=== PATIENT | female | born 1965 | race Caucasian/White ===

== ENCOUNTER 2017-05-16 09:30 | Day surgery (SDC) | payer BC ==
[2017-05-16] MEDS ORDERED: LIDOCAINE 2% MDV (20MG/ML) 20ML VIAL IV ONE (14:00)
[2017-05-16] MEDS ORDERED: PROPOFOL 10 MG/ML VIAL IV ONE (14:00)
[2017-05-16] MEDS ORDERED: MIDAZOLAM HCL 2MG/2ML VIAL IV ONE (14:00)
--- NOTE | 2017-05-20 10:00 | Operative Note ---
DATE OF SURGERY: 05/16/2017 OPERATION: Screening COLONOSCOPY. PREOPERATIVE DIAGNOSIS: Average risk for colon cancer screening. POSTOPERATIVE DIAGNOSIS: Normal exam. PROCEDURE: After informed consent was obtained from the patient, she was placed in the left lateral decubitus position in the endoscopy suite, sedated and monitored by the department of anesthesia. Digital rectal examination was unremarkable. A well-lubricated [id number] colonoscope was inserted into the rectum and advanced to the cecum. Preparation quality was good. The cecum, ascending colon, transverse colon, descending colon, sigmoid colon, and rectum were carefully inspected. No polyps, mass lesions, or inflammation was seen. Forward and J-turn views of the rectum and anorectum were unremarkable. The endoscope was straightened, the rectal ampulla deflated, and the endoscope was removed. RECOMMENDATIONS: The patient should resume her medications and diet. I would recommend a repeat exam in 10 years. As always, thank you for allowing me to participate in the healthcare of your patients. CC: Kurtis LAWSON
== END 2017-05-16 11:30 | disposition home or self-care (01) ==
LOC: HOP 09:30
PROVIDERS: ATTEND Internal Medicine Gastroenterology
DX: Z12.11 Encounter for screening for malignant neoplasm of colon (principal); E03.9 Hypothyroidism, unspecified
CPT/HCPCS: 00810; G0121

== ENCOUNTER 2018-04-14 06:59 | Emergency (ER) | payer BC ==
--- NOTE | 2018-04-14 07:28 | Emergency Department Record ---
History of Present Illness - General Chief complaint: ENT Stated complaint: JUNK IN MY HEAD/SINUS Time Seen by Provider: 04/14/18 07:22 Source: Patient Mode of Arrival: Ambulatory - History of Present Illness Initial comments: 52 yo female presents with 3 days of congestion, sore throat, cough and left ear pain. No fevers. She states her hearing feels muffled on the left. No NVD. The drainage is clear. The cough is non productive. No chest pain, abdominal pain. MD complaint: Ear pain, Sore throat Onset/Timin -: Days(s) Location: R ear, L ear Severity: Moderate Consistency: Intermittent Improves with: None Worsens with: None Associated Symptoms: Cough - Related Data Previous Rx's Medication Instructions Recorded Azithromycin [Zithromax] 250 mg PO DAILY #6 tab 04/14/18 Allergies Allergy/AdvReac Type Severity Reaction Status Date / Time codeine Allergy Mild hives Unverified 09/19/16 08:18 Sulfa (Sulfonamide Allergy Unknown pt not sure Unverified 04/14/18 07:05 Antibiotics) Travel Screening - Travel/Exposure Within Last 30 Days Have you traveled within the last 30 days?: No Review of Systems Constitutional: Denies: Chills, Fever, Malaise, Weakness Eyes: Denies: Eye discharge, Eye pain ENT: Reports: Congestion, Ear pain, Throat pain Respiratory: Reports: Cough Cardiovascular: Denies: Chest pain, Palpitations Endocrine: Denies: Fatigue Gastrointestinal: Denies: Abdominal pain, Diarrhea, Nausea, Vomiting Genitourinary: Denies: Dysuria Musculoskeletal: Denies: Arthralgia, Myalgia Skin: Denies: Bruising, Change in color, Rash Neurological: Denies: Headache, Numbness, Weakness Psychiatric: Denies: Anxiety Hematological/Lymphatic: Denies: Easy bleeding, Easy bruising Past Medical History - SOCIAL HISTORY Smoking Status: Never smoker Alcohol Use: None Drug Use: None - RESPIRATORY Hx Respiratory Disorders: Yes Hx Asthma: Yes (ACTIVITY INDUCED) - CARDIOVASCULAR Hx Cardio Disorders: No - NEURO Hx Neuro Disorders: No - GI Hx GI Disorders: No - Hx Genitourinary Disorders: No - ENDOCRINE Hx Endocrine Disorders: Yes Hx Thyroid Disease: Yes - MUSCULOSKELETAL Hx Musculoskeletal Disorders: No - PSYCH Hx Psych Problems: No - HEMATOLOGY/ONCOLOGY Hx Hematology/Oncology Disorders: No Family Medical History Any Significant Family History?: No Physical Exam - General General Appearance: Alert, Oriented x3, Cooperative, No acute distress Limitations: No limitations - Head Head exam: Normal inspection - Eye Eye exam: Normal appearance, PERRL. negative: Conjunctival injection, Scleral icterus - ENT ENT exam: Normal exam, Mucous membranes moist, Normal orophraynx. negative: Mucous membranes dry, TM's normal bilaterally (Left TM is erythematous) Ear exam: Normal external inspection Nasal Exam: Normal inspection Mouth exam: Normal external inspection Teeth exam: Normal inspection Throat exam: Normal inspection. negative: Tonsillar erythema, Tonsillomegaly, Tonsillar exudate, R peritonsillar mass, L peritonsillar mass - Neck Neck exam: Normal inspection, Full ROM. negative: Tenderness - Respiratory Respiratory exam: Normal lung sounds bilaterally. negative: Respiratory distress - Cardiovascular Cardiovascular Exam: Regular rate, Normal rhythm, Normal heart sounds - Rectal Rectal exam: Deferred - exam: Deferred - Extremities Extremities exam: Normal inspection - Neurological Neurological exam: Alert, Oriented X3 - Psychiatric Psychiatric exam: Normal affect, Normal mood - Skin Skin exam: Dry, Intact, Normal color, Warm Course Vital Signs 04/14/18 07:03 Temperature 98.2 F Pulse Rate 95 H Respiratory 20 Rate Blood Pressure 124/66 Pulse Ox 96 - Reevaluation(s) Reevaluation #1: The examination is consistent LOM with sinus infection 04/14/18 07:23 Disposition Disposition: Discharge Clinical Impression: Sinusitis Qualifiers: Sinusitis location: frontal Chronicity: acute Recurrence: not specified as recurrent Qualified Code(s): J01.10 - Acute frontal sinusitis, unspecified Otitis media Qualifiers: Otitis media type: unspecified Chronicity: acute Qualified Code(s): H66.90 - Otitis media, unspecified, unspecified ear Disposition: Home, Self-Care Condition: (1) Good Instructions: Otitis Media (ED) Additional Instructions: Call your doctor for close follow up Return if you have any return of symptoms or new concerns Prescriptions: Azithromycin [Zithromax] 250 mg PO DAILY #6 tab Time of Disposition: 07:27 Quality - Quality Measures Quality Measures: N/A - Blood Pressure Screening Does Patient Have Any of the Following: No Blood Pressure Classification: Pre-Hypertensive BP Reading Systolic Measurement: 124 Diastolic Measurement: 66 Screening for High Blood Pressure: < Pre-Hypertensive BP, F/U Documented > [ [id number]] Pre-Hypertensive Follow-up Interventions: Referral to alternative/primary care provider.
== END 2018-04-14 07:36 | disposition home or self-care (01) ==
LOC: ER 06:59
DX: J01.10 Acute frontal sinusitis, unspecified (principal); H66.92 Otitis media, unspecified, left ear
CPT/HCPCS: 99282